=== PATIENT | female | born 1985 | race Two or more races ===

== ENCOUNTER 2023-09-05 18:06 | Emergency (ER) | payer OTHER ==
[2023-09-05] MEDS ORDERED: IBUPROFEN 400 MG TABLET (FP) PO ONE ×2 (18:13→18:18)
[2023-09-05 18:15] VITALS: BP 110/68; PULSE 60; RESP 15; TEMP 97.9; BMI 28.8
== END 2023-09-05 19:00 | disposition home or self-care (01) ==
LOC: FER 18:06
DX: M79.672 Pain in left foot (principal); R22.42 Localized swelling, mass and lump, left lower limb; W20.8XXA Other cause of strike by thrown, projected or falling object, initial encounter; Y99.0 Civilian activity done for income or pay
CPT/HCPCS: 73630-TC-LT; 99283-25